=== PATIENT | male | born 1950 | race Caucasian/White ===

== ENCOUNTER → 2023-12-07 10:12 | Outpatient (REF) | payer MEDICARE, OTHER, SELFPAY | LOC: RCS 10:12 | PROVIDERS: ATTENDING PHYSICIAN Thoracic Surgery (Cardiothoracic Vascular Surgery); FAMILY PHYSICIAN Family Medicine | DX: Z98.890 Other specified postprocedural states (principal) | CPT/HCPCS: 93306 ==

== ENCOUNTER → 2024-11-21 08:59 | Outpatient (REF) | payer MEDICARE, OTHER, SELFPAY | LOC: RCS 08:59 | PROVIDERS: ATTENDING PHYSICIAN Thoracic Surgery (Cardiothoracic Vascular Surgery); FAMILY PHYSICIAN Family Medicine | DX: Z98.890 Other specified postprocedural states (principal) | CPT/HCPCS: 93306 ==

== ENCOUNTER 2024-12-19 06:46 | Day surgery (SDC) | payer MEDICARE, OTHER, SELFPAY ==
[2024-12-19] VITALS (9 sets, daily range): BP systolic 120–150; BP diastolic 61–72; BMI 24.0
[2024-12-19] MEDS: LOW STRENGTH ASPIRIN 81 MG PO (07:39)
[2024-12-19] MEDS: NSS 240 ML IV (07:42)
[2024-12-19] MEDS: NSS 1000 IV (10:06)
== END 2024-12-19 12:30 | disposition home or self-care (01) ==
LOC: CATH 06:46
PROVIDERS: ATTENDING PHYSICIAN Internal Medicine Interventional Cardiology; FAMILY PHYSICIAN Family Medicine
DX: R07.89 Other chest pain (principal); R06.09 Other forms of dyspnea; I35.1 Nonrheumatic aortic (valve) insufficiency
CPT/HCPCS: 93460; C1769; C1894; Q9967

== ENCOUNTER → 2024-12-25 11:47 | Outpatient (REF) | payer MEDICARE, OTHER, SELFPAY ==
--- NOTE | 2024-12-19 09:35 | ITS.CL.CATH ---
Nursing Program Director - Catheterization
Cardiac Catheterization
Procedure Report:
RIGHT AND LEFT HEART CATHETERIZATION
Date of Procedure: On December 19, 2024
Primary Care Physician: Dr. Dominic Tee
Primary Supervisor Vendor Quality: Myself
Procedures performed:
1: Coronary angiography
2: Left ventricular hemodynamic assessment
3: Right heart catheterization
INDICATION: The patient is a 74-year-old man with a past medical history significant for mitral valve repair in April 2022 who is referred for diagnostic right and left heart cath in the setting of exertional dyspnea and intermittent exertional
chest tightness. Echocardiography shows moderate to severe aortic insufficiency by echocardiography performed on November 21, 2024. This was certainly worse than prior or at the time of mitral valve surgery.
ACCESS: The patient was prepped and draped in usual sterile fashion. A 5 Chadian sheath was placed in the right radial artery using the Seldinger over the wire technique. A 6 Chadian sheath was then placed in the right common femoral vein using the
same technique.
HEMODYNAMIC FINDINGS (mmHg):
RA(a,v,m): 8, 6, 6
RV(s/d,EDP): 29/6, 8
PA(s/d/m): 27/13, 19
PCWP(a,v,m): 9, 11, 9
LV(s/d,EDP): 123/6, 9
Ao(s/d,m): 123/69, 95
Oxygen Saturations (mg/dl):
PA: 68% on room air
LV: 94% on room air
Cardiac Output/Index (l/min / l/min/m2):
Estimated Tawnya Method: 4.4 / 2.2
VALVE HEMODYNAMICS:
No significant aortic or mitral valve stenosis.
ANGIOGRAPHIC FINDINGS:
Single-plane Left Ventriculography in FRANK Projection: Not done.
Coronary Angiography:
Dominance: Left
Left Main: Normal
Left Anterior Descending: The left anterior descending artery is a medium caliber vessel that gives rise to 2 major diagonal branches. These vessels are angiographically normal.
Ramus Intermedius: There is a medium caliber ramus intermedius branch which is normal.
Left Circumflex: The left circumflex is a small nondominant system that gives rise to 2 relatively small obtuse marginal branches. These vessels are normal.
Right Coronary: The right coronary artery is a very large caliber dominant vessel that gives rise to a medium caliber posterior descending artery and a large posterior left ventricular branch system. The right coronary artery is very tortuous at the
takeoff and in the AV groove but is otherwise angiographically normal.
Fluoroscopy Time (min): 2.4
Radiation Dose (mGy): 173
DAP (Gy.cm2): 11
Closure device: None. A TR band was applied for hemostasis at the right wrist. The femoral vein groin sheath will be pulled with manual pressure for hemostasis.
Complications: None.
ASSESSMENT:
1: Normal coronary arteries. Unchanged from prior angiography in 2022.
2: Normal right-sided and left ventricular filling pressures.
CONCLUSIONS and RECOMMENDATIONS:
1: Continue medical therapy with clinical follow-up and serial assessment of aortic regurgitation. Given his normal filling pressures I doubt that this is driving symptoms.
Lisa Zuñiga M.D.
== END ==
LOC: RAD 11:47
PROVIDERS: ATTENDING PHYSICIAN Thoracic Surgery (Cardiothoracic Vascular Surgery); FAMILY PHYSICIAN Family Medicine
DX: I35.1 Nonrheumatic aortic (valve) insufficiency (principal)
CPT/HCPCS: 71275; 74174; Q9967